=== PATIENT | male | born 1995 | race Caucasian/White ===

== ENCOUNTER 2019-10-09 19:46 | Inpatient (IN) ==
[2019-10-09 20:20] LABS: Urine Appearance Clear; Urine Bilirubin Negative (Negative); Urine Blood Negative (Negative); Urine Color Yellow; Urine Glucose Negative (Negative); Urine Ketones Negative (Negative); Urine Nitrite Negative (Negative); Urine Protein Negative (Negative); Urine Specific Gravity 1.023 (1.010-1.030); Urine Urobilinogen Negative (Negative)
[2019-10-09 20:27] LABS: ABS Basophils 0.1 10^3/ul (0-0.2); ABS Eosinophils 0.2 10^3/ul (0-0.6); ABS Lymphocytes 2.3 10^3/ul (1.0-4.8); ABS Monocytes 0.8 10^3/ul (0-0.8); ABS Neutrophils 5.5 10^3/ul (1.5-7.7); Eosinophil % 1.7 %; Hematocrit 42 % (42-52); Lymphocyte % 26.2 %; Mean Corpuscular HGB Conc 35 g/dL (31-36); Mean Corpuscular Hemoglobin 30 pg (27-31); Mean Corpuscular Volume 85 fL (80-94); Nucleated Red Blood Cells % 0.1; Platelet Count 232 10^3/uL (150-450); Red Blood Count 5.01 10^6 /uL (4.18-5.48); Red Cell Distribution Width 13 % (10-15); White Blood Count 8.9 10^3/uL (3.5-10.8)
[2019-10-09 20:31] LABS: Urine Benzodiazepine Screen None Detected (None Detect); Urine Cannabinoids Screen None Detected (None Detect); Urine Opiates Screen None Detected (None Detect)
[2019-10-09 20:40] LABS: ALT 30 U/L (7-52); AST 25 U/L (13-39); Albumin 4.5 g/dL (3.2-5.2); Albumin/Globulin Ratio 1.6 (1-3); Alkaline Phosphatase 77 U/L (34-104); Anion Gap 6 mmol/L (2-11); BUN/Creatinine Ratio 16.3 (8-20); Blood Urea Nitrogen 16 mg/dL (6-24); CO2 Carbon Dioxide 28 mmol/L (22-32); Calcium 9.3 mg/dL (8.6-10.3); Chloride 104 mmol/L (101-111); EGFR African American 114.7 (>60); EGFR Non-African American 94.8 (>60); Globulin 2.9 g/dL (2-4); Glucose 96 mg/dL (70-100); Sodium 138 mmol/L (135-145); Total Protein 7.4 g/dL (6.4-8.9)
[2019-10-09 21:23] LABS: Acetaminophen < 15 mcg/mL; Alcohol, S < 10 mg/dL (<10); Salicylate < 2.50 mg/dL (<30)
[2019-10-09 21:37] LABS: TSH Ultra Thyroid Stim Horm 2.75 mcIU/mL (0.34-5.60)
[2019-10-09] MEDS ORDERED: Al Hydrox/Mg Hydrox/Simet LIQ 30 ML UDC PO PRN (23:46)
[2019-10-10] MEDS: Vitamin THERAPEUTIC TAB PO SCH (12:21)
[2019-10-11 08:59] LABS: HDL Cholesterol 31.3 mg/dL
[2019-10-11] MEDS: Vitamin THERAPEUTIC TAB PO SCH (13:28)
[2019-10-11] MEDS ORDERED: Guanfacine ER 1 mg TAB PO SCH (21:00)
[2019-10-12] MEDS: Vitamin THERAPEUTIC TAB PO SCH (09:08)
[2019-10-13] MEDS: Vitamin THERAPEUTIC TAB PO SCH (10:22)
[2019-10-14] MEDS: Vitamin THERAPEUTIC TAB PO SCH (07:55)
[2019-10-15] MEDS: Vitamin THERAPEUTIC TAB PO SCH (08:16)
[2019-10-15 08:36] VITALS: BP 155/93
== END 2019-10-15 14:12 | disposition home or self-care (01) | DRG 751 ==
LOC: ED 19:46 → BSU 22:46
PROVIDERS: ADMIT Psychiatry & Neurology Psychiatry; ATTEND Psychiatry & Neurology Psychiatry